=== PATIENT | female | born 1965 | race Caucasian/White ===

== ENCOUNTER 2019-06-07 11:18 | Emergency (ER) | payer BC ==
[2019-06-07] MEDS ORDERED: 0.9 % SODIUM CHLORIDE 1,000 ML BAG IV ONE (11:34)
[2019-06-07] MEDS ORDERED: ACETAMINOPHEN 1,000 MG/100 ML BTL IVPB ONE (11:38)
--- NOTE | 2019-06-07 11:42 | Emergency Department Record ---
History of Present Illness - General Chief Complaint: Abdominal Pain Stated Complaint: ABD PAIN Time Seen by Provider: 06/07/19 11:27 Source: Patient Mode of Arrival: Ambulatory Limitations: No limitations - History of Present Illness Initial Comments: The patient is here due to a 2 week hx of intermittent lower AP. The pain is a dull aching pain that waxes and wanes. She has had mild constipation with it and nausea but denies any vomiting, diarrhea, fever, or dysuria. The patient did see her PCP for it and was told she had a stomach virus. She did got to the this AM and was sent over to the ER for a CT. Her only abdominal surgeries are Hiatal Hernia surgery 30 years ago and a urterine ablation. MD Complaint: Abdominal pain Onset/Timin -: Week(s) Location: Suprapubic, LLQ, RLQ Severity: Moderate Severity scale (1-10): 4 Quality: Dull, Stabbing, Other Consistency: Constant, Intermittent Improves With: Nothing Worsens With: Other Associated Symptoms: Constipation, Nausea - Related Data Patient : No Home Medications Medication Instructions Recorded Confirmed Last Taken No Home Med [NO HOME MEDS] 06/07/19 06/07/19 Unknown Allergies Allergy/AdvReac Type Severity Reaction Status Date / Time Sulfa (Sulfonamide Allergy NAUSEA Verified 06/07/19 11:24 Antibiotics) latex AdvReac SWELLING Verified 06/07/19 11:24 (GENERAL) Travel Screening - Travel/Exposure Within Last 30 Days Have you traveled within the last 30 days?: No - Travel/Exposure Within Last Year Have you traveled outside the [place] in the last year?: No - Additonal Travel Details Have you been exposed to anyone with a communicable illness?: No - Travel Symptoms Symptom Screening: None Review of Systems Constitutional: Denies: Chills, Fever, Malaise Eyes: Denies: Eye discharge ENT: Denies: Congestion Respiratory: Denies: Cough Cardiovascular: Denies: Arrhythmia, Chest pain Endocrine: Denies: Fatigue Gastrointestinal: Reports: Abdominal pain, Nausea. Denies: Diarrhea, Vomiting Genitourinary: Denies: Dysuria Musculoskeletal: Denies: Arthralgia Skin: Denies: Bruising Past Medical History - SOCIAL HISTORY Smoking Status: Former smoker Alcohol Use: None Drug Use: Occasional Drug Use Detail:: Marijuana - RESPIRATORY Hx Respiratory Disorders: No - CARDIOVASCULAR Hx Cardio Disorders: No - NEURO Hx Neuro Disorders: No - GI Hx GI Disorders: No - Hx Genitourinary Disorders: No - ENDOCRINE Hx Endocrine Disorders: No - MUSCULOSKELETAL Hx Musculoskeletal Disorders: No - PSYCH Hx Psych Problems: No - HEMATOLOGY/ONCOLOGY Hx Hematology/Oncology Disorders: No Family Medical History Any Significant Family History?: No Physical Exam - General General Appearance: Alert, Oriented x3, Cooperative, No acute distress - Head Head exam: Atraumatic, Normocephalic - Eye Eye exam: Normal appearance, PERRL, EOMI - ENT Throat exam: Normal inspection. negative: Tonsillar erythema, Tonsillar exudate - Neck Neck exam: Normal inspection, Full ROM. negative: Tenderness - Respiratory Respiratory exam: Normal lung sounds bilaterally. negative: Respiratory distress - Cardiovascular Cardiovascular Exam: Regular rate, Normal rhythm, Normal heart sounds - GI/Abdominal GI/Abdominal exam: Soft, Normal bowel sounds, Tenderness (There is diffuse lower abdominal tenderness bilaterally.). negative: Distended, Guarding, Rebound, Rigid - Extremities Extremities exam: Normal inspection, Full ROM, Normal capillary refill. negative: Tenderness - Back Back exam: Reports: Normal inspection - Neurological Neurological exam: Alert, Normal gait. negative: Abnormal gait, Motor sensory deficit Course Vital Signs 06/07/19 11:22 Temperature 98.9 F Pulse Rate [ 93 H Pulse Ox Probe] Respiratory 16 Rate Blood Pressure 120/83 [Left Arm] Pulse Ox 96 - Reevaluation(s) Reevaluation #1: The patient is doing better at this time. She states the pain has resolved after the [employer]. We are waiting on the CT report at this time. 06/07/19 12:45 Reevaluation #2: I did inform the patient that the CT does demonstrate what appears to be a ruptured appendicitis with central mesentery inflammatory mass and developing abscess. I did recommend transfer to a larger hospital and they would like to go to [facility] in [facility]. I then did discuss the case with the ER doctor who is Dr. Amador and she does accept the patient in an ER to ER transfer. The patient also understands the need to stay NPO for now. 06/07/19 14:35 Reevaluation #3: I did offer the patient an ambulance ride to [facility] but she declined and would like her to drive her. I do believe she is stable for transfer and has been up walking to the bathroom with no issues and is very hemodynamically st able. 06/07/19 15:17 Medical Decision Making - Data Complexity MDM Data: Labs Ordered and/or Reviewed, X-Ray Ordered and/or Reviewed - Lab Data Result diagrams: 06/07/19 12:05 06/07/19 12:05 - Radiology Data Radiology results: Report reviewed (CT: Prob Tip appendicitis with perforation, Central Mesentery Inflammatory mass with 2.2 x 3.7 cm developing abscess. Incidental findings of liver and kidney abnormalities which the patient is aware of and will F/U with her PCP and discuss.) Disposition Disposition: Transfer Clinical Impression: Appendicitis with perforation Disposition: Acute Care Hospital Transfer Transfer To: [facility] Reason For Transfer: Surgery Accepting Physician: Marjorie Time Discussed w/Accepting Physician: 14:37 Condition: (2) Stable Instructions: Abdominal Pain (ED) Additional Instructions: Go directly to the [facility] ER for further evaluation. Do not have anything to eat or drink. Forms: Patient Portal Access Time of Disposition: 14:37 Quality - Quality Measures Quality Measures: N/A - Blood Pressure Screening View Details: Yes Does Patient Have Any of the Following: No Blood Pressure Classification: Normal BP Reading Systolic Measurement: 118 Diastolic Measurement: 78 Screening for High Blood Pressure: < Normal BP, F/U Not Required > [G8783]
[2019-06-07 12:06] LABS: ABSOLUTE NEUTROPHIL COUNT 11.71; HEMATOCRIT 39.9 % (35.0-47.0); HEMOGLOBIN 13.2 gm/dl (11.6-16.0); MEAN CELL VOLUME 94.3 fl (81-97); MEAN CORPUSCULAR HEMOGLOBIN 31.2 pg (27-33); MEAN CORPUSCULAR HGB CONC 33.1 g/dl (32-36); MEAN PLATELET VOLUME 9.2 fl (7.4-10.4); PLATELET COUNT 496 K/uL (130-400); RED BLOOD COUNT 4.23 M/uL (3.80-5.40); RED CELL DISTRIBUTION WIDTH 12.6 % (11.5-14.5); WHITE BLOOD COUNT W/O DIFF 14.4 K/uL (4.2-12.2)
[2019-06-07 12:09] LABS: URINE APPEARANCE CLEAR; URINE BILIRUBIN NEGATIVE (NEGATIVE); URINE BLOOD NEGATIVE (NEGATIVE); URINE COLOR YELLOW; URINE GLUCOSE (UA) NEGATIVE (NEGATIVE); URINE KETONE NEGATIVE (NEGATIVE); URINE LEUKOCYTE ESTERASE TRACE (NEGATIVE); URINE NITRITE NEGATIVE (NEGATIVE); URINE PROTEIN NEGATIVE (NEGATIVE); URINE UROBILINOGEN 0.2 E.U./dL (0.20 - 1.00)
[2019-06-07 12:18] LABS: URINE BACTERIA NONE SEEN; URINE EPITHELIAL CELLS 0 - 2 (FEW); URINE RBC NONE SEEN (NONE SEEN); URINE WBC NONE SEEN (0-2/hpf)
[2019-06-07 12:23] LABS: ALBUMIN 3.1 g/dL (4.0-5.0); ALKALINE PHOSPHATASE 144 U/L (35-104); ALT/SGPT 23 U/L (<33); AST/SGOT 30 U/L (10.0-35.0); BLOOD UREA NITROGEN 10 mg/dL (6-20); CREATININE 0.7 mg/dL (0.5-0.9); EST GLOMERULAR FILTRATION RATE > 60 mL/min
[2019-06-07 12:24] LABS: GLUCOSE,RANDOM 97 mg/dL (74-109); LIPASE 20 U/L (13-60); TOTAL PROTEIN 7.7 g/dL (6.6-8.7)
[2019-06-07 12:27] LABS: BILIRUBIN,DIRECT < 0.2 mg/dL (0-0.3)
[2019-06-07] MEDS ORDERED: ONDANSETRON HCL IV 4 MG/2 ML VIAL IVP ONE (13:51)
[2019-06-07] MEDS ORDERED: ERTAPENEM SODIUM 1 G in 0.9 % SODIUM CHLORIDE 100ML 100 ML IVPB ONE (14:15)
--- NOTE | 2019-06-08 20:28 | CT SCAN REPORT ---
EXAM: CT SCAN ABDOMEN/PELVIS W CONTRAST HISTORY: PELVIC PAIN WITH NAUSEA AND INTERMITTENT CONSTIPATION FOR TWO WEEKS. KNOWN URINARY CALCIFICATIONS. PRIOR HIATAL HERNIA REPAIR. TECHNIQUE: Following oral and intravenous contrast administration, helical CT examination of the abdomen and pelvis is performed including delayed images through the kidneys with 95 mL of Omnipaque-300 utilized. COMPARISON: CT abdomen and pelvis without contrast dated 08/31/2014. FINDINGS: Linear atelectasis vs. scarring is demonstrated within each lung base and there is minor dependent atelectasis bilaterally. No pleural or pericardial effusion. The heart is not enlarged. There is a subtle hypodense lesion within the superior aspect of the anterior segment of the right liver lobe measuring 11 x 11 mm (segment 8). This is likely present on the prior examination, though not as well visualized, given lack of IV contrast utilization on the prior exam. There is possible subtle peripheral nodular enhancement, though this is not definite. There is a possible tiny hypodensity also noted within the lateral mid right liver lobe (segment 8) measuring 2.5 mm. The liver is otherwise normal in appearance. The gallbladder is unremarkable and there is no biliary ductal dilatation. The pancreas is without abnormality. The spleen is not enlarged. There are multiple nonobstructing calculi within the left kidney with the largest in the lower pole measuring 5.5 mm. There are a few nonobstructing calculi also noted scattered within the right kidney with the largest measuring approximately 3 mm. There is a nonenhancing fluid-density mass within the anterior mid right kidney measuring 2.0 x 1.6 cm. This is consistent with a cyst. It is visualized on the prior examination. No other renal mass is identified. No obstructive uropathy. No gross intraabdominal nor retroperitoneal lymphadenopathy. There are nonenlarged lymph nodes in the infrarenal periaortic region. There is severe inflammatory change in the central mesentery at the upper pelvis level with probable developing abscess measuring 2.2 x 3.7 cm. This likely relates to a tip appendicitis, which has perforated. No suspicious pelvic mass nor lymphadenopathy. Calcified uterine fibroids are again identified, more conspicuous than on the prior examination. No intrinsic urinary bladder abnormality is seen. The inflammatory process in the central mesentery within the upper pelvis is associated with wall thickening of the proximal sigmoid colon. This is likely reactive rather than intrinsic inflammatory process, such as diverticulitis. Occasional diverticula are present within the left colon. The terminal ileum is unremarkable. No free intraperitoneal air. There is a small fat-filled periumbilical hernia appearing uncomplicated. No lytic or blastic bone lesion. There are degenerative changes scattered throughout the visualized spine. IMPRESSION: 1. SEVERE INFLAMMATORY PROCESS INVOLVING THE CENTRAL MESENTERY AT THE LEVEL OF THE UPPER PELVIS WITH PROBABLE DEVELOPING ABSCESS MEASURING 2.2 X 3.7 CM. THIS IS LIKELY THE RESULT OF A PERFORATED TIP APPENDICITIS, THOUGH THERE IS ALSO THICKENING OF THE WALL OF THE ADJACENT PROXIMAL SIGMOID COLON. THIS SIGMOID COLON THICKENING IS LIKELY REACTIVE RATHER THAN THE RESULT OF PRIMARY COLITIS/DIVERTICULITIS. 2. BILATERAL NEPHROLITHIASIS. RIGHT RENAL CYST. 3. THERE ARE A COUPLE SUBTLE HYPODENSE LESIONS WITHIN THE RIGHT LIVER LOBE. THESE ARE OF INDETERMINATE ETIOLOGY, THOUGH THE LARGER LESION IS LIKELY PRESENT ON THE 2014 EXAMINATION. FURTHER EVALUATION WITH DEDICATED PRE AND POSTCONTRAST ADMINISTRATION CT OR MRI EXAMINATION IS RECOMMENDED. 4. POSTSURGICAL CHANGES IN THE GASTROESOPHAGEAL JUNCTION. JOB NUMBER: [id number] MTDD
== END 2019-06-07 15:36 | disposition short-term general hospital (02) ==
LOC: ER 11:18
DX: K35.33 Acute appendicitis with perforation, localized peritonitis, and gangrene, with abscess (principal); R11.0 Nausea; Z87.891 Personal history of nicotine dependence
CPT/HCPCS: 99285 ×2; 96365; 96366; 96375; 83690; 80076; 80048; 81001; 85027; 74177; Q9967; J1335; J2405; J7030